=== PATIENT | male | born 1995 | race African-American/Black ===

== ENCOUNTER 2018-02-27 02:33 | Emergency (ER) | payer SELFPAY ==
[2018-02-27 02:39] VITALS: BP 117/56
--- NOTE | 2018-02-27 03:02 | ER Document Report ---
ED General - General Chief Complaint: Nausea/Vomiting Stated Complaint: VOMITING Time Seen by Provider: 02/27/18 02:43 Notes: Patient is a 22-year-old male presenting to the emergency department complaining of cough and congestion for the last 5 days. Patient states for the last 2 days he has had 3 total episodes of posttussive vomiting. This evening he had a coughing fit where he states he saw a very scant amount of dark red blood on the tissue that he coughed onto. Patient states he was also sneezing at the same time. Patient is unsure of blood came from his nose or his mouth. Patient denies fever, chest pain, shortness of breath, diarrhea, dysuria. 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 Patient states he did have a negative TB test in November 2017. Past medical history: None Medications: None Allergies: Seasonal Surgical history: None Patient admits to cigarette smoking, occasional EtOH use, denies illicit drug use. TRAVEL OUTSIDE OF THE [place] IN LAST 30 DAYS: No - Related Data Allergies/Adverse Reactions: No Known Allergies Allergy (Unverified 02/27/18 02:39) Past Medical History - General Information source: Patient - Social History Smoking Status: Current Every Day Smoker Lives with: Family Family History: Reviewed & Not Pertinent Review of Systems - Review of Systems Constitutional: See HPI EENT: See HPI Cardiovascular: See HPI Respiratory: See HPI Gastrointestinal: See HPI Genitourinary: See HPI Male Genitourinary: No symptoms reported Musculoskeletal: No symptoms reported Skin: No symptoms reported Hematologic/Lymphatic: No symptoms reported Neurological/Psychological: No symptoms reported Physical Exam - Vital signs Vitals: Temp Pulse Resp BP Pulse Ox 98.5 F 82 18 117/56 L 100 02/27/18 02:38 02/27/18 02:38 02/27/18 02:38 02/27/18 02:38 02/27/18 02:38 - Notes Notes: GENERAL: Alert, interacts well. No acute distress. HEAD: Normocephalic, atraumatic. EYES: Pupils equal, round, and reactive to light. Extraocular movements intact. ENT: Oral mucosa moist, tongue midline. Nares patent, bilateral swollen turbinates, TM's intact no erythema or bulging noted BL. No frontal or ethmoid sinus tenderness. NECK: Full range of motion. Supple. Trachea midline. LUNGS: Clear to auscultation bilaterally, no wheezes, rales, or rhonchi. No respiratory distress. HEART: Regular rate and rhythm. No murmur ABDOMEN: Soft, non-tender. Non-distended. Bowel sounds present in all 4 quadrants. EXTREMITIES: Moves all 4 extremities spontaneously. No edema, normal radial and dorsalis pedis pulses bilaterally. No cyanosis. BACK: no cervical, thoracic, lumbar midline tenderness. No saddle anesthesia, normal distal neurovascular exam. NEUROLOGICAL: Alert and oriented x3. Normal speech. cranial nerves II through XII grossly intact. PSYCH: Normal affect, normal mood. SKIN: Warm, dry, normal turgor. No rashes or lesions noted. Course - Re-evaluation Re-evalutation: 02/27/18 03:06 RN stated patient wanted to leave the emergency department. Reviewed chest x- ray which showed no signs of consolidation. Discussed printing out discharge paperwork to include prescription for nasal spray and allergy medication. Patient states he has a family emergency and wants to leave. Patient actively walking out of ED. - Vital Signs Vital signs: Temp Pulse Resp BP Pulse Ox 98.5 F 82 18 117/56 L 100 02/27/18 02:38 02/27/18 02:38 02/27/18 02:38 02/27/18 02:38 02/27/18 02:38 Discharge - Discharge Clinical Impression: Hemoptysis, unspecified, Left against medical advice Upper respiratory infection Qualifiers: URI type: unspecified viral URI Qualified Code(s): J06.9 - Acute upper respiratory infection, unspecified Condition: Stable Disposition: AGAINST MEDICAL ADVICE
--- NOTE | 2018-02-27 03:13 | RADIOLOGY REPORT (SQ) ---
CLINICAL HISTORY: cough/SOB COMPARISON: None. TECHNIQUE: XR CHEST 2 VIEWS 02/27/2018 2:54 AM CDT FINDINGS: Cardiac silhouette is normal in size. Lungs are clear without consolidation, atelectasis, mass or edema. There is no pleural effusion. There is no pneumothorax. There are no acute osseous findings. IMPRESSION: Clear lungs.
== END 2018-02-27 03:12 | disposition left against medical advice (07) ==
LOC: ER 02:33
DX: J06.9 Acute upper respiratory infection, unspecified (principal); R04.2 Hemoptysis; R11.2 Nausea with vomiting, unspecified; F17.210 Nicotine dependence, cigarettes, uncomplicated
CPT/HCPCS: 71046; 99283

== ENCOUNTER 2018-07-28 15:57 | Emergency (ER) | payer SELFPAY ==
--- NOTE | 2018-07-28 16:28 | ER Document Report ---
ED Medical Screen (RME) - General Chief Complaint: Headache Stated Complaint: HEADACHE Time Seen by Provider: 07/28/18 16:04 Notes: 22-year-old male patient reports severe right frontal headache started about 11 AM. He is somewhat vague about whether it woke him up or it started after he woke up. He states he tried to take a hot shower and the headache got worse. He reports that he had some visual disturbance in the right eye but that has improved. He also reports that his right upper extremity has been weaker than the left. He did vomit about 10 minutes ago. He does not have a history of headaches. He does report recent stressors, and that he just found out his girlfriend is . I have greeted and performed a rapid initial assessment of this patient. A comprehensive ED assessment and evaluation of the patient, analysis of test results and completion of the medical decision making process will be conducted by additional ED providers. TRAVEL OUTSIDE OF THE [place] IN LAST 30 DAYS: No - Related Data Allergies/Adverse Reactions: No Known Allergies Allergy (Unverified 02/27/18 02:39) Past Medical History - Social History Chew tobacco use (# tins/day): No Frequency of alcohol use: None Drug Abuse: None Renal/ Medical History: Denies: Hx Peritoneal Dialysis
--- NOTE | 2018-07-28 16:56 | RADIOLOGY REPORT (SQ) ---
EXAM DESCRIPTION: CT HEAD WITHOUT COMPLETED DATE/TIME: 07/28/2018 4:41 pm REASON FOR STUDY: Severe frontal WING w/vision problems RUE weakness COMPARISON: None. TECHNIQUE: Axial images acquired through the brain without intravenous contrast. Images reviewed wi th bone, brain and subdural windows. Additional sagittal and coronal reconstructions were generated. Images stored on PACS. All CT scanners at this facility use dose modulation, iterative reconstruction, and/or weight based d osing when appropriate to reduce radiation dose to as low as reasonably achievable (ALARA). [facility]: Dose Right [facility]: CareDose [facility]: Dose Right [facility]: Teradose 4D [facility]: yeppt RADIATION DOSE: CT Rad equipment meets quality standard of care and radiation dose reduction techniq ues were employed. CTDIvol: 53.2 mGy. DLP: 1017 mGy-cm. mGy. LIMITATIONS: None. FINDINGS: VENTRICLES: Normal size and contour. CEREBRUM: No masses. No hemorrhage. No midline shift. No evidence for acute infarction. Normal gra y/white matter differentiation. No areas of low density in the white matter. CEREBELLUM: No masses. No hemorrhage. No alteration of density. No evidence for acute infarction. EXTRAAXIAL SPACES: No fluid collections. No masses. ORBITS AND GLOBE: No intra- or extraconal masses. Normal contour of globe without masses. CALVARIUM: No fracture. PARANASAL SINUSES: Minimal polypoid mucosal thickening in the right maxillary sinus. Remaining sinus es are unremarkable. . SOFT TISSUES: No mass or hematoma. OTHER: No other significant finding. IMPRESSION: NORMAL BRAIN CT WITHOUT CONTRAST. EVIDENCE OF ACUTE STROKE: NO. COMMENT: Quality ID # [id number]: Final reports with documentation of one or more dose reduction techniques (e.g., Automated exposure control, adjustment of the mA and/or kV according to patient size, use of iterative reconstruction technique) TECHNICAL DOCUMENTATION: JOB ID: [id number] [employer]- All Rights Reserved Reading location - IP/workstation name: [email or web address]
[2018-07-28] MEDS ORDERED: NORMAL SALINE 1000 ML 1,000 ML IV ONE (16:57)
[2018-07-28] MEDS ORDERED: PROCHLORPERAZINE EDISYLATE INJ 10 MG/2 ML VIAL IV ONE ×2 (16:57→17:56)
[2018-07-28] MEDS ORDERED: DIPHENHYDRAMINE HCL 50 MG/ML VIAL IV ONE (16:57)
--- NOTE | 2018-07-28 17:07 | ER Document Report ---
ED Headache - General Chief Complaint: Headache Stated Complaint: HEADACHE Time Seen by Provider: 07/28/18 16:04 Primary Care Provider: [facility] [Provider Group] - Follow up as needed NANCY HUDDLESTON MD [NO LOCAL MD] - Follow up as needed Mode of Arrival: Ambulatory Information source: Patient Notes: Patient presents complaining of left-sided frontal headache that started around 11 AM this morning while he was sitting. Patient states that gradually the headache started to worsen throughout the day. Patient states he had some nausea and has vomited x1 episode. Patient denies any head injury or previous problems with headaches. Patient denies any fever. Patient denies any history of IV drug use. Patient denies any recent illness. Patient denies any family history of aneurysm or stroke at an early age. TRAVEL OUTSIDE OF THE [place] IN LAST 30 DAYS: No - HPI Patient complains to provider of: Headache Onset: This morning Onset was: Gradual Timing: Still present Quality of pain: Throbbing Pain Level: 5 Associated symptoms: Motor/sensory loss to arm, Nausea/vomiting. denies: Double/blurred vision, Fainting, Fever, Neck pain, Photophobia, Stiff neck, Trouble walking Exacerbated by: denies: Light, Noise Similar symptoms previously: No Recently seen / treated by doctor: No - Related Data Allergies/Adverse Reactions: No Known Allergies Allergy (Unverified 02/27/18 02:39) Past Medical History - General Information source: Patient - Social History Smoking Status: Never Smoker Chew tobacco use (# tins/day): No Frequency of alcohol use: None Drug Abuse: None Occupation: [employer] service Family History: Reviewed & Not Pertinent Patient has suicidal ideation: No Patient has homicidal ideation: No - Medical History Medical History: Negative Renal/ Medical History: Denies: Hx Peritoneal Dialysis Surgical Hx: Negative Review of Systems - Review of Systems Constitutional: No symptoms reported. denies: Fever, Recent illness EENT: No symptoms reported Cardiovascular: No symptoms reported. denies: Chest pain, Dizziness Respiratory: No symptoms reported. denies: Cough, Short of breath Gastrointestinal: Nausea, Vomiting. denies: Abdominal pain, Diarrhea Genitourinary: No symptoms reported Male Genitourinary: No symptoms reported Musculoskeletal: No symptoms reported. denies: Back pain, Joint pain, Neck pain Skin: No symptoms reported. denies: Rash Hematologic/Lymphatic: No symptoms reported Neurological/Psychological: Headaches, Numbness - Right upper extremity that has since resolved while here. denies: Confusion, Weakness, Lost consciousness Physical Exam - Vital signs Vitals: Pulse Resp BP Pulse Ox 64 14 107/52 L 100 07/28/18 16:00 07/28/18 16:00 07/28/18 16:00 07/28/18 16:00 - General General appearance: Appears well, Alert In distress: None - HEENT Head: Normocephalic, Atraumatic Eyes: Normal Conjunctiva: Normal Extraocular movements intact: Yes Eyelashes: Normal Pupils: PERRL Fundascopic: Normal. No: Retinal detachment, Retinal hemorrhage Ears: Normal External canal: Normal Nasal: Normal Pharynx: Normal Neck: Normal, Supple. No: Brudzinski, Kernig's, Lymphadenopathy, Meningismus - Respiratory Respiratory status: No respiratory distress Chest status: Nontender Breath sounds: Normal. No: Rales, Rhonchi, Stridor, Wheezing Chest palpation: Normal - Cardiovascular Rhythm: Regular Heart sounds: S1 appreciated, S2 appreciated Murmur: No - Back Back: Normal, Nontender. No: Vertebra tenderness - Extremities General upper extremity: Normal inspection, Nontender, Normal ROM General lower extremity: Normal inspection, Nontender, Normal ROM - Neurological Neuro grossly intact: Yes Cognition: Normal Angelique Coma Scale Eye Opening: Spontaneous [place] Coma Scale Verbal: Oriented Angelique Coma Scale Motor: Obeys Commands [place] Coma Scale Total: 15 Speech: Normal. No: Dysarthria Cranial nerves: Normal. No: Facial palsy, Forehead sparing, Tongue deviation Cerebellar coordination: Normal, Heel-rivera, Finger-nose rhombey, Rapid alt. movements. No: Gait ataxia Motor strength normal: LUE, RUE, LLE, RLE Additional motor exam normals: Equal stores naval. No: Weakness Sensory: Normal. No: Altered light touch - Psychological Associated symptoms: Normal affect, Normal mood - Skin Skin Temperature: Warm Skin Moisture: Dry Skin Color: Normal Course - Re-evaluation Re-evalutation: 07/28/18 17:04 Patient continues with nausea and reports vomiting x1 in the bathroom. Patient states that his headache pain is at a 5 out of 5 scale. Patient reports that the numb sensation that he had had to the right upper extremity has. Consult with Dr. Sinclair who recommends CTA of the head and treating symptoms as though migrainous in nature. 07/28/18 17:56 Patient returned to room from CT. Patient denies any paresthesia to the extremities or face. Patient reports headache pain is improved although not completely resolved. 07/28/18 18:50 Patient reports headache pain resolved. Patient without any focal neurologic deficits at this time. Suspect likely migraine at this time. No concern for stroke. Consulted with Dr. Sinclair who agrees with discharge plan of care at this time. - Vital Signs Vital signs: Temp Pulse Resp BP Pulse Ox 98.1 F 77 16 97/59 L 100 07/28/18 18:56 07/28/18 18:56 07/28/18 18:56 07/28/18 18:56 07/28/18 18:56 - Diagnostic Test Radiology reviewed: Reports reviewed Discharge - Discharge Clinical Impression: Headache Qualifiers: Headache type: unspecified Headache chronicity pattern: unspecified pattern Intractability: not intractable Qualified Code(s): R51 - Headache Condition: Stable Disposition: HOME, SELF-CARE Instructions: Antinausea Medication ([facility]), Intravenous Compazine for Headaches ([facility]), Use of Diphenhydramine, Headache ([facility]), Toradol Injection ([facility]) Additional Instructions: Return immediately for any new or worsening symptoms Followup with your primary care provider, call tomorrow to make a followup appointment Follow-up with a neurologist for further evaluation, call tomorrow for an appointment Prescriptions: Butalb/Acetaminophen/Caffeine [Fioricet (50-325-40 mg) Tablet] 1 - 2 tab PO Q4H PRN #14 each PRN Reason: Referrals: NANCY HUDDLESTON MD [NO LOCAL MD] - Follow up as needed [facility] [Provider Group] - Follow up as needed
--- NOTE | 2018-07-28 17:51 | RADIOLOGY REPORT (SQ) ---
EXAM DESCRIPTION: CTA HEAD; CTA NECK COMPLETED DATE/TIME: 07/28/2018 5:45 pm REASON FOR STUDY: WING COMPARISON: None. TECHNIQUE: Post IV contrast scanning, thin section axial imaging through the brain to evaluate the a rterial structures. Source and MIP images are saved and reviewed on PACS. Advanced 3D imaging as volume-rendering, MIPs, SSD performed? yes All CT scanners at this facility use dose modulation, iterative reconstruction, and/or weight based d osing when appropriate to reduce radiation dose to as low as reasonably achievable (ALARA). [facility]: Dose Right [facility]: CareDose [facility]: Dose Right [facility]: Teradose 4D [facility]: [employer] CONTRAST TYPE AND DOSE: contrast/concentration: Isovue 350.00 mg/ml; Total Contrast Delivered: 70.0 ml; Total Saline Delivered: 75.0 ml RENAL FUNCTION: None required. The patient is less than 50 years old. LIMITATIONS: None. FINDINGS: CERVICAL VESSELS: Normal cervical carotid and vertebral arteries. [place]: The anterior, middle, posterior cerebral arteries are all patent. No evidence of a neurysm or focal stenosis. POSTERIOR CIRCULATION: The distal vertebral arteries are patent as is the basilar artery. No aneurysm . BRAIN: No gross enhancing lesions as visualized. The superior cerebral hemispheres are not included in the field of view. BONES: Intact as visualized. SINUSES: No fluid or mucosal thickening. OTHER: No other significant finding. IMPRESSION: Normal CT angiogram of the head and neck. No evidence of occlusion, aneurysm, or stenos is. No findings to explain headache. TECHNICAL DOCUMENTATION: JOB ID: [id number] Quality ID # [id number]: Final reports with documentation of one or more dose reduction techniques (e.g., Au tomated exposure control, adjustment of the mA and/or kV according to patient size, use of iterative reconstruction technique) 2010 [employer]- All Rights Reserved Reading location - IP/workstation name: [email or web address]
--- NOTE | 2018-07-28 17:51 | RADIOLOGY REPORT (SQ) ---
EXAM DESCRIPTION: CTA HEAD; CTA NECK COMPLETED DATE/TIME: 07/28/2018 5:45 pm REASON FOR STUDY: WING COMPARISON: None. TECHNIQUE: Post IV contrast scanning, thin section axial imaging through the brain to evaluate the a rterial structures. Source and MIP images are saved and reviewed on PACS. Advanced 3D imaging as volume-rendering, MIPs, SSD performed? yes All CT scanners at this facility use dose modulation, iterative reconstruction, and/or weight based d osing when appropriate to reduce radiation dose to as low as reasonably achievable (ALARA). [facility]: Dose Right [facility]: CareDose [facility]: Dose Right [facility]: Teradose 4D [facility]: [employer] CONTRAST TYPE AND DOSE: contrast/concentration: Isovue 350.00 mg/ml; Total Contrast Delivered: 70.0 ml; Total Saline Delivered: 75.0 ml RENAL FUNCTION: None required. The patient is less than 50 years old. LIMITATIONS: None. FINDINGS: CERVICAL VESSELS: Normal cervical carotid and vertebral arteries. [place]: The anterior, middle, posterior cerebral arteries are all patent. No evidence of a neurysm or focal stenosis. POSTERIOR CIRCULATION: The distal vertebral arteries are patent as is the basilar artery. No aneurysm . BRAIN: No gross enhancing lesions as visualized. The superior cerebral hemispheres are not included in the field of view. BONES: Intact as visualized. SINUSES: No fluid or mucosal thickening. OTHER: No other significant finding. IMPRESSION: Normal CT angiogram of the head and neck. No evidence of occlusion, aneurysm, or stenos is. No findings to explain headache. TECHNICAL DOCUMENTATION: JOB ID: [id number] Quality ID # [id number]: Final reports with documentation of one or more dose reduction techniques (e.g., Au tomated exposure control, adjustment of the mA and/or kV according to patient size, use of iterative reconstruction technique) 2010 [employer]- All Rights Reserved Reading location - IP/workstation name: [email or web address]
[2018-07-28] MEDS ORDERED: KETOROLAC TROMETHAMINE INJ/PF 30 MG/1 ML SDV IV ONE (17:56)
[2018-07-28 18:57] VITALS: BP 97/59
== END 2018-07-28 19:20 | disposition home or self-care (01) ==
LOC: ER 15:57
DX: R51 Headache (principal); R11.2 Nausea with vomiting, unspecified
CPT/HCPCS: 96376; 99284; 96361; 96374; 96375; 70450; 70496; 70498; J1200; J1885; J0780; J7030